=== PATIENT | male | born 1975 | race Caucasian/White ===

== ENCOUNTER 2020-12-23 11:18 | Emergency (ER) | payer OTHER ==
--- NOTE | 2020-12-23 12:20 | EDM.PDOC ---
ED HPI GENERAL MEDICAL PROBLEM - General Chief Complaint: Eye Problems Stated Complaint: RT EYE PAIN/COMPLAINT Time Seen by Provider: 12/23/20 12:20 - History of Present Illness INITIAL COMMENTS - FREE TEXT/NARRATIVE: 45-year-old male presents the emergency room with a right eye injury. Around 4 AM this morning the patient awoke with a sensation that he poked himself in the right eye. And since that time it has hurt. It seems to be worse if he is outside in the breeze. Opening and closing his eye tends to make it worse as well. His vision seems to be all right if he has both of his eyes open monocular vision is compromised in the right eye. The patient lives in [place] and was out here hunting and this was not practical today. Out the varies really made the pain quite a bit worse. Wearing sunglasses tended to help a little bit. Patient normally wears glasses. Right Eye Pain Score (Numeric/FACES): 5 - Related Data Allergies Allergy/AdvReac Type Severity Reaction Status Date / Time acetaminophen Allergy Abdominal Verified 12/23/20 11:52 Pain Home Meds: Home Meds . [No Known Home Meds] 12/23/20 [History] Past Medical History Gastrointestinal History: Reports: Irritable Bowel Syndrome Social & Family History - Tobacco Use Tobacco Use Status *Q: Never Tobacco User Second Hand Smoke Exposure: No - Caffeine Use Caffeine Use: Reports: None - Recreational Drug Use Recreational Drug Use: No ED ROS GENERAL - Review of Systems Review Of Systems: See Below Constitutional: Reports: No Symptoms HEENT: Reports: Eye Pain, Vision Change. Denies: Ear Pain, Rhinitis, Sinus Problem, Throat Pain Respiratory: Reports: No Symptoms Cardiovascular: Reports: No Symptoms GI/Abdominal: Reports: No Symptoms Neurological: Reports: No Symptoms ED EXAM GENERAL W FULL EYE - Physical Exam Exam: See Below Exam Limited By: No Limitations General Appearance: Alert, No Apparent Distress Eye Exam: Right Eye: Corneal Abrasion (Using an otoscope I can see what looks like a abrasion to the right medial upper quadrant just at the peripheral edge of the cornea), Normal Fundi, Bilateral Eye: PERRL Eyelids: Right: Lid Everted for Exam (No foreign bodies identified), Bilateral: Normal Appearance Conjunctiva & Sclera: Right: Injected Cornea Exam: Right: Corneal Abrasion (As described above), Cloudy Cornea, Foreign Body (I was suspicious of a foreign body but could not identify 1. ), Examined with Flourescein (The right upper inner quadrant abrasion is more magnified with the floor seen in place) Extraocular Movements: Bilateral: Intact Pupils: Normal Accommodation Pupillary Reaction: Bilateral: Brisk Anterior Chamber: Right: Normal Appearance Posterior Chamber: Right: Normal Funduscopic Head: Atraumatic, Normocephalic Neck: Normal Inspection, Supple, Non-Tender, Full Range of Motion Respiratory/Chest: No Respiratory Distress, Lungs Clear, Normal Breath Sounds Cardiovascular: Regular Rate, Rhythm, No Edema, No Murmur Course - Vital Signs Last Recorded V/S: Last Vital Signs Temp 37.4 C 12/23/20 11:51 Pulse 78 12/23/20 11:51 Resp 18 12/23/20 11:51 BP 142/108 H 12/23/20 11:51 Pulse Ox 100 12/23/20 11:51 - Orders/Labs/Meds Meds: Medications Discontinued Medications Generic Name Dose Route Start Last Admin Trade Name Cate PRN Reason Stop Dose Admin Erythromycin 1 gm 12/23/20 13:18 Erythromycin Base 0.5% Ophth Oint 1 Gm Tube EYEBOTH 12/23/20 13:19 ONETIME ONE Fluorescein Sodium 1 mg 12/23/20 12:24 12/23/20 12:29 Fluorescein 1 Mg Ophth Strip EYERT 12/23/20 12:25 1 mg ONETIME ONE Administration Proparacaine HCl 2 ml 12/23/20 12:25 12/23/20 12:28 Proparacaine 0.5% Ophth Soln 15 Ml Bottle EYERT 12/23/20 12:26 2 ml ONETIME ONE Administration - Re-Assessments/Exams Free Text/Narrative Re-Assessment/Exam: 12/23/20 13:46 Patient has a superficial abrasion as described above. Patient does okay if he is out of the wound has minimal discomfort will not give opioids because they all have Tylenol in them and he does not believe he needs them. We will start erythromycin ointment to act as a lubricant to use every couple hours while awake. Patient agrees to seek medical care if this does not improve as it should and to follow-up with his eye doctor early this next week for recheck. Departure - Departure Time of Disposition: 13:39 Disposition: Home, Self-Care 01 Clinical Impression: Corneal abrasion, right - Discharge Information Referrals: PCP,Not In Area [Primary Care Provider] - Forms: ED Department Discharge Additional Instructions: Return to this emergency room or the closest available emergency room with any questions problems or worsening symptoms. Please follow-up with your eye doctor early this next week preferably Friday for recheck. Use the erythromycin ointment as we discussed every couple hours while awake. If your symptoms follow typical course you should feel much better in the morning. Sepsis Event Note (ED) - Focused Exam Vital Signs: Vital Signs Temp Pulse Resp BP Pulse Ox 12/23/20 11:51 37.4 C 78 18 142/108 H 100
[2020-12-23] MEDS ORDERED: Fluorescein 1 MG Ophth Strip EYERT ONE (12:24)
[2020-12-23] MEDS ORDERED: Proparacaine 0.5% Ophth Soln 15 ML Bottle EYERT ONE (12:25)
[2020-12-23] MEDS ORDERED: Erythromycin Base 0.5% Ophth Oint 1 GM Tube EYEBOTH ONE (13:18)
== END 2020-12-23 13:50 | disposition home or self-care (01) ==
LOC: JD.ED 11:18
DX: S05.01XA Injury of conjunctiva and corneal abrasion without foreign body, right eye, initial encounter (principal); Z88.6 Allergy status to analgesic agent; X58.XXXA Exposure to other specified factors, initial encounter
CPT/HCPCS: 99283; A9270